=== PATIENT | male | born 1955 | race Caucasian/White ===

== ENCOUNTER → 2025-03-23 15:20 | Outpatient (REF) | payer MEDICARE, OTHER, SELFPAY ==
--- OUTSIDE RECORDS SUMMARY | 2025-03-23 15:23 | XMS_ITS | Encounter Summary ---
Author Organization [facility] Address [address] [place] [address] Phone Care Team Providers Care Piano Maker Name Role Phone Eliecer Sanchez MD Primary Care Provider [phone] Lidia Stone MD Unavailable Edwin Goodwin MD Unavailable [phone] Bon Alicea MD Unavailable [phone] Encounter Details Date Type Department Care Team (Latest Contact Info) Description 09/08/2024 Orders Only [facility] Scanning, Provider Social History Tobacco Use Types Packs/Day Years Used Date Smoking Tobacco: Never Cigarettes Passive Smoke Exposure: Past Smokeless Tobacco: Never AUDIT-C Answer Date Recorded Q1: How often do you have a drink containing alcohol? Never 09/03/2023 Q2: How many drinks containi ng alcohol do you have on a typical day when you are drinking? Patient does not drink Q3: How often do you have si x or more drinks on one occasion? Never 09/03/2023 PHQ-2 Answer Date Recorded PHQ-2 Total Score (If total score is 3 or more points, staff should administer the PHQ-9) 0 10/25/2023 Personal Safety Answer Date Recorded Have you ever been in or are you currently in a harmful physical or emotional relationship or is someone making you feel afraid or unsafe? Denies 10/30/2023 Sex and Gender Information Value Date Recorded Sex Assigned at Not on file Legal Sex Male 9:27 AM CDT Gender Identity Male 03/07/2023 3:15 PM CDT Sexual Orientation Straight 03/07/2023 3: 15 PM CDT documented as of this encounter Plan of Treatment Not on file documented as of this encounter Procedures Procedure Name Priority Date/Time Associated Diagnosis Comments SCAN - PATHOLOGY 09/08/2024 documented in this encounter Results * SCAN - PATHOLOGY (09/08/2024) us Provider Scanning Final Result documented in this encounter Visit Diagnoses Not on filedocumented in this encounter Care Teams Piano Maker Relationship Specialty Start Date End Date Eliecer Sanchez MD [address] [place] [address] PCP - General Family Medicine 05/25/22 Lidia Stone MD [address] [place] [address] Referring Physician Dermatology 08/07/23 Edwin Goodwin MD [address] [place] [address] Surgeon Surgical Oncology 08/09/23 Bon Alicea MD [address] [facility] [address] [place] [address] Medical Oncologist/Order Desk Clerk Medical Oncology 08/09/23 documented as of this encounter
--- OUTSIDE RECORDS SUMMARY | 2025-03-23 15:23 | XMS_ITS | Encounter Summary ---
Author Organization [facility] Address [address] [place] [address] Care Team Providers Care Rn Community Health Name Role Phone Krista Leon NP Primary Care Provider [phone] Oswaldo Wilkinson MD Unavailable [phone] Brian Domínguez OD Unavailable [phone] Lidia Stone MD Unavailable [phone] Gabe Nicole MD Unavailable Eliecer Sanchez MD Primary Care Provider [phone] Encounter Details Date Type Department Care Team (Late st Contact Info) Description 11/17/2021 [email or web address] Message Enc [facility] Family Medicine - [place] [address] [facility] [address] [place] [address] Krista Leon NP [address] [place], [place] [id number] Lab results Social History Tobacco Use Types Packs/Day Years Used Date Smoking Tobacco: Never Smokeless Tobacco: Never Comments:The provider can pr ovide you with more information about quitting. Alcohol Use Standard Drinks/Week Comments Not Currently 0 (1 standard drink = 0.6 oz pur e alcohol) PHQ-2 Answer Date Recorded PHQ-2 Score - If the patient scores above 3, please move on to questions 3-9 0 10/24/2021 Sex and Gender Information Value Date Recorded Sex Assigned at Not on file Legal Sex Male 6:35 PM CDT Gender Identity Not on file Sexual Orientation Straight 11/03/2021 8: 05 AM SUPERVISOR INSPECTION COVID-19 Exposure Response Date Recorded In the last month, have you been in contact with someone who was confirmed or suspected to have Coronavirus / COVID-19? No / Unsure 10/31/2021 8:04 AM SUPER[employer] documented as of this encounter Plan of Treatment Not on file documented as of this encounter Visit Diagnoses Not on filedocumented in this encounter Additional Health Concerns Assessment Noted Time PHQ-9 Depression Total Score: 1 10/24/20 9:45 AM SUPERVISOR INS[employer] documented as of this encounter Care Teams Rn Community Health Relationship Specialty Start Date End Date Krista Leon NP [address] [place] [address] PCP - General NURSE PRACTITIONER 10/23/21 01/14/23 Eliecer Sanchez MD [address] [place] [address] PCP - General FAMILY PRACTICE 01/15/23 Oswaldo Wilkinson MD [address] [facility] [place] [address] Consulting Physician UROLOGY 10/24/21 Brian Domínguez OD [address] [place] [address] Financial Services Agent 10/24/21 Lidia Stone MD [address] [place] [address] DERMATOLOGY 10/24/21 Gabe Nicole MD [address] [facility] [address] [address] Consulting Physician GASTROENTEROLOGY 10/24/21 documented as of this encounter
--- OUTSIDE RECORDS SUMMARY | 2025-03-23 15:23 | XMS_ITS | Encounter Summary ---
Author Organization [facility] Address [address] [place] [address] Phone Care Team Providers Care Hardboard Panel Printer Name Role Phone Eliecer Sanchez MD Primary Care Provider [phone] Lidia Stone MD Unavailable [phone] Edwin Goodwin MD Unavailable [phone] Bon Alicea MD Unavailable [phone] Encounter Details Date Type Department Care Team (Latest Contact Info) Description 01/14/2024 Orders Only [facility] Scanning, Provider Social History Tobacco Use Types Packs/Day Years Used Date Smoking Tobacco: Never Passive Smoke Exposure: Past Smokeless Tobacco: Never [...] Priority Date/Time Associated Diagnosis Comments SCAN - RADIOLOGY/IMAGING 01/14/2024 documented in this encounter Results * SCAN - RADIOLOGY/IMAGING (01/14/2024) Anatomical Region Laterality Modality Other us Provider Scanning Edited Result - Final documented in this encounter Visit Diagnoses Not on filedocumented in this encounter Care Teams Hardboard Panel Printer Relationship Specialty Start Date End Date Eliecer Sanchez MD [address] [place] [address] PCP - General Family Medicine 05/25/22 Lidia Stone MD [address] [place] [address] Referring Physician Dermatology 08/07/23 Edwin Goodwin MD [address] [place] [address] Surgeon Surgical Oncology 08/09/23 [place] [address] [place] [address] [address] [place] [address] Medical Oncologist/Award Clerk Medical Oncology 08/09/23 documented as of this encounter
--- OUTSIDE RECORDS SUMMARY | 2025-03-23 15:23 | XMS_ITS | Encounter Summary ---
Author Organization [facility] Address [address] [place] [address] Phone Care Team Providers Care Project Engineer Name Role Phone Eliecer Sanchez MD Primary Care Provider [phone] Lidia Stone MD Unavailable [phone] Edwin Goodwin MD Unavailable [phone] Bon Alicea MD Unavailable [phone] Encounter Details Date Type Department Care Team (Latest Contact Info) Description 01/22/2024 Orders Only [facility] Scanning, Provider [...] Priority Date/Time Associated Diagnosis Comments SCAN - LABS 01/22/2024 documented in this encounter Results * SCAN - LABS (01/22/2024) Provider Scanning Final Result documented in this encounter Visit Diagnoses Not on filedocumented in this encounter Care Teams Project Engineer Relationship Specialty Start Date End Date Eliecer Sanchez MD [address] [place] [address] PCP - General Family Medicine 05/25/22 Lidia Stone MD [address] [place] [address] Referring Physician Dermatology 08/07/23 Edwin Goodwin MD [address] [place] [address] Surgeon Surgical Oncology 08/09/23 Bon Ailcea MD [address] [facility] [address] [place] [address] Medical Oncologist/Clinical Field Specialist Medical Oncology 08/09/23 documented as of this encounter
--- OUTSIDE RECORDS SUMMARY | 2025-03-23 15:23 | XMS_ITS | Encounter Summary ---
Author Organization [facility] Address [address] [place] [address] Phone Care Team Providers Care Nutrition Manager Name Role Phone Eliecer Sanchez MD Primary Care Provider [phone] Lidia Stone MD Unavailable [phone] Edwin Goodwin MD Unavailable [phone] Bon Alicea MD Unavailable Encounter Details Date Type Department Care Team (Latest Contact Info) Description 12/24/2023 Orders Only [facility] Scanning, Provider [...] Date/Time Associated Diagnosis Comments SCAN - RADIOLOGY/IMAGING 12/24/2023 documented in this encounter Results * SCAN - RADIOLOGY/IMAGING (12/24/2023) Anatomical Region Laterality Modality Other us Provider Scanning Edited Result - Final documented in this encounter Visit Diagnoses Not on filedocumented in this encounter Care Teams Nutrition Manager Relationship Specialty Start Date End Date Eliecer Sanchez MD [address] [place] [address] PCP - General Family Medicine 05/25/22 Lidia Stone MD [address] [place] [address] Referring Physician Dermatology 08/07/23 Edwin Goodwin MD [address] [place] [address] Surgeon Surgical Oncology 08/09/23 [place] [address] [place] [address] [address] [place] [address] Medical Oncologist/Bead Picker Medical Oncology 08/09/23 documented as of this encounter
--- OUTSIDE RECORDS SUMMARY | 2025-03-23 15:23 | XMS_ITS | Clinical Summary ---
Author Organization [facility] [address] [facility] lt Address [address] [place] [address] Care Team Providers Care Strategy Lead Name Role Phone Eliecer Sanchez MD Primary Care Provider [phone] Lidia Stone MD Unavailable [phone] Edwin Goodwin MD Unavailable Bon Alicea MD Unavailable [phone] Allergies Active Allergy Reactions Criticality Noted Date Comments Penicillins Hives,Rash Medium 03/31/2022 Medications cetirizine (ZyrTEC) 10 mg tabletIndications :Allergic Rhinitis Take 1 tablet (10 mg total) by mouth nightly Active finasteride (PROSCAR) 5 mg tabletIndications :benign prostatic hyperplasia with lower urinary tract sx Take 1 tablet (5 mg total) by mouth nightly 2 Active silodosin (RAPAFLO) 8 mg capsuleIndication s:benign prostatic hyperplasia with lower urinary tract sx Take 1 capsule (8 mg total) by mouth nightly 0 Active latanoprost (XALATAN) 0.005 % ophthalmic solutionIndicatio ns:ocular hypertension Administer 1 drop into both eyes nightly 2 Active Lacto.acidophilus -Bif.animalis 32 billion cell capsule Take 1 capsule by mouth daily as needed (gut health) Patient usually only takes this 2-3 times a week Active cod liver oiL oilIndications:oneal pplement Take 1 Dose by mouth every morning Active multivitamin with minerals tabletIndications :Vitamin Deficiency Prevention Take 1 tablet by mouth every morning Active ferrous sulfate 325 mg (65 mg of elemental iron) tabletIndications :Iron Deficiency Anemia Take 1 tablet (325 mg total) by mouth daily with breakfast Active fluticasone propionate (Flonase Allergy Relief) 50 mcg/actuation nasal spray 4 Active levothyroxine (SYNTHROID) 75 mcg tablet Take 1 tablet (75 mcg total) by mouth warehouse pricing and inventory clerk before breakfast 30 tablet 3 5 Active Sodium Fluoride 5000 Plus 1.1 % cream BRUSH TWICE DAILY 5 Active Active Problems Problem Noted Date Diagnosed Date Medicare annual wellness visit, subsequent 10/29 Assessment & Plan (10/29/2024 11:32 AM SPA EXPERIENCE COORDINATOR): In regard to health maintenance, Colonoscopy- UTD Influenza vaccine- UTD Pneumococcal vaccine- UTD Shingrix vaccine- UTD ASCVD risk: 16.6% Eat a healthy diet: focus on lean meats and proteins, more fruits, vegetables and whole grains and low in sugars and fats. Limit red meat and avoid processed meat. Maintain a healthy weight; avoid being overweight. Aim for a normal body mass index (BMI) of 18.5-24.9. Help learning to eat healthier, we can set up appointment with annual campaign manager/floral artist. Have an active lifestyle, strive for 30 minutes of moderate exercise 5 times a week and strength or resistance training at least twice a week. Use broad-spectrum (UVA+UVB) sunscreen with SPF 30 or greater, is water resistant, limit time spent in the sun (10 am-4pm), wear hat, wear UV protective clothing, wear sunglasses. Never use a tanning bed. Skin that was irradiated may be more sensitive over your lifetime. Limit alcohol intake, 1 drink per day for a woman and 2 drinks per day for a man. BMI 26.0-26.9,adult 10/29/2024 Assessment & Plan (10/29/2024 11:32 AM SPA EXPERIENCE COORDINATOR): Weight appropriate for patient. Elevated liver enzymes 10/30/2023 Assessment & Plan (10/30/2023 12:06 AM SPA EXPERIENCE COORDINATOR): - Unclear etiology, possibly related to brief hypotensive episode in the ED - Check Hepatitis panel and HIV with AM labs Syncope 10/29/2023 Assessment & Plan (10/30/2023 12:00 AM SPA EXPERIENCE COORDINATOR): - Patient presenting following an episode of syncope prior to arrival while sitting at dinner - Evaluation with unremarkable BMP/CBC, hs-trop 4 x 2, EKG with NSR with RAD with RVH - no prior EKG for comparison without ST-T changes noted - CT-PE without PE. - Presume this as a vasovagal episode (unclear if pembro would have any contribution), given occurred at sitting not consistent with orthostasis. Given he was sitting, this increases concern for arrhythmic etiology - no notable murmurs noted on exam. No concern for seizure at this time based on history. - Telemetry overnight, fall precautions Malignant melanoma of right upper extremity including shoulder 08/27/2023 Assessment & Plan (04/29/2024 4:35 PM CDT): Stable, well controlled; most recent PET scan demonstrated no evidence of local or distant disease Patient gets quarterly skin checks Keytruda every 6 weeks Assessment & Plan (10/30/2023 12:01 AM SPA EXPERIENCE COORDINATOR): - Follows with Dr. Alicea s/p RUE excision. Today C1D1 of pembrolizumab initiated. - Outpatient follow-up Assessment & Plan (10/25/2023 9:18 AM SPA EXPERIENCE COORDINATOR): Doing well; starts immunotherapy next week Melanoma of right upper arm 08/19/2023 Right hand pain 08/07/2023 Digital mucinous cyst of finger 01/07/2023 Overview (05/03/2023): Located on right ring finger Assessment & Plan (05/03/2023 9:49 AM CDT): No changes in size, no impact to function, located on right ring finger Changes size shape for impacts functionality; refer to Hand surgery Assessment & Plan (01/07/2023 10:13 AM SPA EXPERIENCE COORDINATOR): Located in right hand, imaging was indeterminate; at this time patient would prefer to wait about getting biopsy Will continue to monitor for changes in mass Onychomycosis 01/07/2023 Assessment & Plan (05/03/2023 9:33 AM CDT): Continues to have improvement in toenails. Completed antifungal treatment Assessment & Plan (01/07/2023 10:14 AM SPA EXPERIENCE COORDINATOR): Stable, improving; continues to have thickening on about half of the toenail Continue Lamisil 25 mg daily COVID-19 03/31/2022 Assessment & Plan (03/31/2022 11:18 AM CDT): Labs completed 12/02/21 at [facility]. Able to see results in his mychart. Normal LFTs. GFR=60. Would like to have paxlovid. Will send in renal dosing. The rapid COVID test performed today in clinic was positive. The following are recommendations for treating the symptoms related to COVID19. What is the difference between Influenza (Flu) and COVID-19? Influenza (Flu) and COVID-19 are both contagious respiratory illnesses, but they are caused by different viruses. COVID-19 is caused by infection with a new coronavirus (called SARS-CoV-2) and flu is caused by infection with influenza viruses. There are some hall differences between flu and COVID-19. COVID-19 seems to spread more easily than flu and causes more serious illnesses in some people. It can also take longer before people show symptoms and people can be contagious for longer. The best way to prevent infection is to avoid being exposed to the virus. Because some of the symptoms of flu and COVID-19 are similar, it may be hard to tell the difference between them based on symptoms alone, and testing may be needed to help confirm a diagnosis. While more is learned every day, there is still a lot that is unknown about COVID-19 and the virus that causes it. The [facility] Department will be reaching out to all patients who have a positive test for further discussion and monitoring. Continue to self isolate until at least 10 days have passed since symptom onset, your symptoms have improved, and you have been fever free without the use of fever reducing medications for at least 24 hours. You may use acetaminophen and/or ibuprofen to control pain and fever. If you have chronic liver disease, have ever had a stomach ulcer or gastrointestinal bleeding talk with your healthcare provider before using these medicines. Aspirin should never be given to anyone under 18 years of age who is ill with a viral infection or fever. It may cause severe liver or brain damage. Your appetite may be poor, so a light diet is ok. Stay well hydrated by drinking 6 to 8 glasses of fluids per day (water, soft drinks, juices, tea, or soup). Extra fluids will help loosen secretions in the nose and lungs. Cqgj-uvn-rsxyeyc cold medicines will not shorten the length of time you r e sick, but they may be helpful for relieving the following symptoms: headache, cough, sore throat, and nasal and sinus congestion. If you take prescription medicines, ask your healthcare provider or pharmacist which vyof-eaa-jndxhxa medicines are safe to use. (Note: DO NOT use decongestants if you have high blood pressure.) Steps to help prevent the spread of COVID-19 if you are sick If you are sick with COVID-19 or think you might have COVID-19, follow the steps below to care for yourself and to help protect other people in your home and community. Stay home except to get medical care Most people with COVID-19 have mild illness and are able to recover at home without medical care. Do not leave your home, except to get medical care. Do not visit public areas. Take care of yourself. Get rest and stay hydrated. Take qzsf-gxg-wjlfval medicines to help you feel better. Stay in touch with your doctor. Call before you get medical care. Be sure to get care if you have trouble breathing, or have any other emergency warning signs, or if you think it is an emergency. Avoid using public transportation, ride-sharing, or taxis. Monitor your symptoms Symptoms of COVID-19 include fever, cough, shortness of breath or difficulty breathing, fatigue, muscle or body aches, headache, new loss of taste or smell, sore throat, congestion, runny nose, nausea, vomiting, or diarrhea. When to Seek Medical Attention If you develop emergency warning signs for COVID-19 get medical attention immediately. Emergency warning signs include*: Trouble breathing Persistent pain or pressure in the chest New confusion or inability to arouse Bluish lips or face *This list is not all inclusive. Please consult your medical provider for any other symptoms that are severe or concerning. Call 911 if you have a medical emergency: If you have a medical emergency and need to call 911, notify the cat wagon operator that you have or think you might have, COVID-19. If possible, put on a facemask before medical help arrives. Separate yourself from other people in your home, this is known as home isolation As much as possible, you should stay away from other people and pets in your home. You should stay in a specific s ick room if possible. Use a separate bathroom, if available. If you need to be around other people or animals in or outside of the home, wear a mask For more information on sharing close living quarters with someone who is sick visit https://www.cdc.gov/coronavirus/2019-ncov/bfklz-nzyo-awxnbc/rgxejq-af-irnrb-quar ters. html For more information on COVID-19 and pets visit https://www.cdc.gov/coronavirus/2019-ncov/faq.html Call ahead before visiting your doctor Many medical visits for routine care are being postponed or done by phone or telemedicine. If you have a medical appointment that cannot be postponed, call your doctor s office, and tell them you have or may have COVID-19. This will help the office protect themselves and other patients. If You Test Positive for COVID-19 (Isolate) Everyone, regardless of vaccination status. Stay home for 5 days. If you have no symptoms or your symptoms are resolving after 5 days, you can leave your house. Continue to wear a mask around others for 5 additional days. If you have a fever, continue to stay home until your fever resolves. Weight loss 04/17/2021 Overview (05/28/2022): Added automatically from request for surgery [id number] Gastroesophageal reflux dise ase with esophagitis without hemorrhage 02/28/2021 Assessment & Plan (10/29/2024 11:30 AM SPA EXPERIENCE COORDINATOR): Well controlled and stable. No longer on Nexium and instead is using OTC digestive enzyme with great relief. Will continue to monitor. Assessment & Plan (04/29/2024 4:35 PM CDT): Stable, well controlled; continues to have some symptoms, unable to lower dose Continue Nexium 20 mg daily Assessment & Plan (10/25/2023 9:08 AM SPA EXPERIENCE COORDINATOR): Stable, well controlled Continue Nexium 20 mg daily Assessment & Plan (05/03/2023 9:34 AM CDT): Well controlled; no major issues with medications Can eat some foods that previously causes issued Continue Nexium 20 mg daily Assessment & Plan (01/07/2023 10:12 AM SPA EXPERIENCE COORDINATOR): Stable, well controlled; patient has careful diet Continue Nexium 20 mg daily Hiatal hernia 02/28/2021 Assessment & Plan (05/29/2022 1:59 PM CDT): Stable, well controlled; patient has been doing well, takes nfji-vbo-sczpogi Nexium daily; making dietary changes to reduce sitting and spicy food intake Benign prostatic hyperplasia without lower urinary tract symptoms 09/20/2020 Assessment & Plan (10/29/2024 11:24 AM SPA EXPERIENCE COORDINATOR): Stable and well controlled. Follows with urology. Continues on Finasteride and Silodosin. Will continue to monitor. Assessment & Plan (04/29/2024 4:34 PM CDT): Stable, generally well controlled; follows with Urology for management; continues have some symptoms; may benefit from interventional treatments Continue finasteride 5 mg daily, silodosin 8 mg nightly Assessment & Plan (10/30/2023 12:00 AM SPA EXPERIENCE COORDINATOR): - Cont home meds Assessment & Plan (10/25/2023 9:05 AM SPA EXPERIENCE COORDINATOR): Follows with urology; currently getting good results Contineu Silodosin 8 mg daily and finasteride 5 mg daily Assessment & Plan (05/03/2023 9:49 AM CDT): Continues to follow with urology; urinating well Per patient has rising PSA; may be due for biopsy -on current medications, with good relief Continue silodosin 8 mg daily, finasteride 5 mg daily Assessment & Plan (01/07/2023 10:13 AM SPA EXPERIENCE COORDINATOR): Stable, well controlled; follows with Urology for management Continue finasteride 5 mg daily, Savella dosing 8 mg daily Assessment & Plan (05/29/2022 1:59 PM CDT): Stable, well controlled; patient reports few symptoms with current medications Continue finasteride 5 mg daily, silodosin 8 mg daily Mixed hyperlipidemia 09/20/2020 Assessment & Plan (10/29/2024 11:31 AM SPA EXPERIENCE COORDINATOR): Lipid panel stable and well controlled. Continues to control with diet and lifestyle. Continue to encourage low-fat high-fiber diet. Assessment & Plan (04/29/2024 4:35 PM CDT): Stable, well controlled; lipids and near optimal ranges; no current medications Continue to encourage low-fat high-fiber diet Assessment & Plan (05/03/2023 9:48 AM CDT): Well controlled; lipids at goal ASCVD risk score is 13.3% Continue low-fat high-fiber diet; continue monitor if patient would benefit from statin therapy Assessment & Plan (01/07/2023 10:12 AM SPA EXPERIENCE COORDINATOR): Stable, well controlled; patient using supplements for management of cholesterol ASCVD risk score is 14% Encourage low-fat high-fiber diet If no improvement, will discuss adding statin therapy Assessment & Plan (05/29/2022 1:58 PM CDT): Stable, well controlled; patient has been working on lifestyle changes, no current medications Vitamin D deficiency 09/20/2020 Resolved Problems Problem Noted Date Diagnosed Date Resolved Date Syncope with normal neurologic examination 10/29/2023 10/30/2023 Assessment & Plan (10/30/2023 12:01 AM SPA EXPERIENCE COORDINATOR): - Encounters Date Type Department Care Team Description 03/03/2025 1:30 PM CDT Office Visit [facility] Cardiology [address], [address] [place] [address] Rater, OCTAVIO Doshi Pure hypercholesterolemia (Primary Dx); Vasovagal syncope 01/29/2025 Orders Only [facility] Scanning, Provider 01/25/2025 Orders Only [facility] Oncology [address] [place] [address] Bon Alicea MD from Last 3 Months Immunizations Immunization Administration Dates Next Due H1N1 Inj 09/27/2009 Hep B Vaccine 03/21/1989,10/18/1988,09/20/1988 Influenza, Quadrivalent, Camelia l Culture-based MDCK, Preservative Free, Antibiotic Free, Intramuscular 10/08/2023,08/24/2021 Influenza, Quadrivalent, Hig h Dose, Preservative Free, Intrr 09/04/2020 Influenza, Quadrivalent, Spl it, Preservative Free, Intramuscular 09/05/2022,08/19/2019,09/26/2017,08/23,08/23/2015 Influenza, Split 09/18/2018 Influenza, Trivalent, Cell Culture-based MDCK, Preservative Free, Antibiotic Free, Intramuscular 10/02/2024 Influenza, Trivalent, IM (MDV) 09/02/2014 Influenza, Unspecified 09/17/2023(Deferr ed: Patient Refused),08/11/2023,09/25/2022, 022 Pneumococcal Conjugate PCV 13 08/19/2019 Pneumococcal Polysaccharide PPV23 09/20/2020 RSV Vaccine, Pref, Recombina nt, Subunit, Adjuvanted, PF, IM (Arexvy) 08/08/2023 Td, adsorbed 06/09/1993 Tdap 10/10/2020 ZOSTER LIVE 07/12/2016 ZOSTER Recombinant 10/24/2021,07/14/2021 Surgical History Surgery Date Site/Laterality Comments TONSILLECTOMY 11/11/1958 - 11/10/1959 COLONOSCOPY multiple ESOPHAGOGASTRODUODENOSCOPY 01/09/2021 - 02/08/2021 SURGICAL EXCISION 09/24/2023 Right R upper arm melanoma VASECTOMY 1988 Medical History Medical History Date Comments Hiatal hernia Enlarged prostate Allergic Melanoma of right upper arm (HCC) 08/19/2023 GERD (gastroesophageal reflux disease) January Benign prostatic hyperplasia Many years Family History Medical History Relation Name Comments Melanoma Brother 1 Cancer Brother 2 Robbin Lopez Miscarriages / Stillbirths Daughter Michelle Cerrato Hearing loss Father Sebastián Stanko Heart disease Father Sebastián Stanko Hypertension Father Sebastián Stanko Memory loss Maternal Grandmother Brandy DeFord Vision loss Maternal Grandmother Brandy DeFord Dementia Mother Nancy Stanko Hypertension Mother Nancy Stanko Memory loss Mother Nancy Stanko Stroke Mother Nancyselina Dentonko Breast cancer Sister 1 Cancer Sister 2 Lisa Lopez Cerebral palsy Sister 2 Lisa Lopez Relation Name Status Comments Brother 1 Brother 2 Robbin Lopez Daughter Michelle Cerrato Father Sebastián Lopez Maternal Grandmother Brandy DeFseble Mother Nancy Lopez Sister 1 Sister 2 Lisa Lopez Social History Tobacco Use Types Packs/Day Years Used Date Smoking Tobacco: Never Passive Smoke Exposure: Past Smokeless Tobacco: Never Tobacco Cessation:Counseling Given: Not Answered AUDIT-C Answer Date Recorded Q1: How often [...] points, staff should administer the PHQ-9) 0 10/29/2024 Personal Safety Answer Date Recorded Have you [...] Orientation Straight 03/07/2023 3: 15 PM CDT Obstetrics History Last Filed Vital Signs Vital Sign Reading Time Taken Comments Blood Pressure 113/72 03/03/2025 1:29 PM CDT Pulse 81 03/03/2025 1:29 PM CDT Temperature 36.4 C (97.6 F) 03/03/2025 1:29 PM CDT Respiratory Rate 16 03/03/2025 1:29 PM CDT Oxygen Saturation 98% 03/03/2025 1:2 9 PM CDT Inhaled Oxygen Concentration - - Weight 78 kg (172 lb) 03/03/2025 1:29 PM CDT Height 174.2 cm (5' 8.58 ) 03/03/2025 1 :29 PM CDT no shoes, no change in ht Body Mass Index 25.71 03/03/2025 1:29 PM CDT Plan of Treatment Health Maintenance Due Date Last Done Comments Covid-19 Vaccine (2023-2 5 season) 2024 08/29/2023, 07/28/2022, 03/26/2022, Additional history exists Depression Screening 10/29/2025 10/29/2024, 10/25/2023, 09/17/2023, Additional history exists Fall Risk Assessment 10/29/2025 10/29/2024, 04/29/2024, 10/31/2023, Additional history exists Well Visit 65+ 10/29/2025 10/29/2024, 10/11, 10/25/2023 DTaP/Tdap/Td Vaccine (2 - Td or Tdap) 10/10/2030 10/10/2020, 06/09/1993 Colon Cancer Screening-Colonoscopy 04/28/2031 04/28/2021 Hepatitis B Screening Completed 03/21/1989 , 10/18/1988, 09/20/1988 Pneumococcal vaccine 65+ Completed 09/20/2020, 07/2019 Zoster Vaccine Completed 10/24/2021, 01/2021, 07/12/2016 Prostate Cancer Screening-PSA Discontinued 10/29/2022 Hepatitis C Screening Completed 10/30/2023, 023 Influenza Vaccine Completed 10/02/2024, , 08/11/2023, Additional history exists Procedures Procedure Name Priority Date/Time Associated Diagnosis Comments SCAN - PATHOLOGY 01/29/2025 9:18 AM CDT HEPATITIS PANEL, ACUTE Routine 10/30/2023 1:45 AM SPA EXPERIENCE COORDINATOR PSA SCREEN Routine 10/29/2022 11:15 AM SPA EXPERIENCE COORDINATOR Screening PSA (prostate specific antigen) HM COLONOSCOPY Routine 04/28/2021 from Last 3 Months or Most Recently Relevant to Health Maintenance Results * SCAN - PATHOLOGY (01/29/2025 9:18 AM CDT) us Provider Scanning Final Result * Hepatitis panel, acute Blood (10/30/2023 1:45 AM SPA EXPERIENCE COORDINATOR) Hep A IgM Nonreactive Nonreactive [facility] Hep B core IgM Nonreactive Nonreactive [facility] Hep C Ab Nonreactive Nonreactive [facility] Comment:Antibodies to HCV no t detected. Does NOT exclude the possibility of recent exposure to HCV. Current interpretive data was last revised on 22 HepBsAg Nonreactive Nonreactive [facility] Blood 10/30/2023 1:45 AM SPA EXPERIENCE COORDINATOR 10/30/2023 1:54 AM SPA EXPERIENCE COORDINATOR Yoni Barnhart MD LAB MICROBIOLOGY - [facility] L ORDERABLES Final Result [facility] Department [place] [address] * PSA screen (10/29/2022 11:15 AM SPA EXPERIENCE COORDINATOR) PSA-Total 2.77 <=5.40 ng/mL [facility] Comment: Interpretive Data AGE SEX REFERENCE INTERVAL 0 minutes-150 years Female None 0 minutes-49 years Male None 50-59 years Male 0-3.90 60-69 years Male 0-5.40 70-79 years Male 0-6.20 80-150 years Male 0-6.20 The Micah PSA Total assay procedure was used. Results from different manufacturers or methods may not be comparable. Serial testing should be performed using the same method. Current interpretive data last revised 22. Blood 10/29/2022 11:1 5 AM SPA EXPERIENCE COORDINATOR 10/29/2022 2:35 PM SPA EXPERIENCE COORDINATOR Eliecer Sanchez MD LAB BLOOD [place] [id number] [facility] Department [place] [address] * HM COLONOSCOPY (04/28/2021) us Historical Provider HEALTH MAINTENANCE Final Result from Last 3 Months or Most Recently Relevant to Health Maintenance Insurance MEDICARE [facility] INS [place] MEDICARE [employer] [place] MED[employer]ARE [employer] [place] Advance Directives For more information, please contact: [phone] Documents on File Type Date Recorded Patient Psychiatric Social Worker Supervisor Expl anation ADVANCE DIRECTIVE 10/25/2023 9:14 AM Hoa morales Will ADVANCE DIRECTIVE 10/25/2023 9:14 AM Bernardo r of Manager Flight-Medical * Full Code (Latest Code Status on File) Date Activated Date Inactivated Comments 10/29/2023 11:54 PM 10/31/2023 7:49 PM Care Teams Strategy Lead Relationship Specialty Start Date End Date Eliecer Sanchez MD [address] [place] [id number] PCP - General Family Medicine 05/25/22 Lidia Stone MD [address] [place] [address] Referring Physician Dermatology 08/07/23 Edwin Goodwin MD [address] [place] [address] Surgeon Surgical Oncology 08/09/23 [place] [address] [place] [address] [place] [id number] Medical Oncologist/Tmr Teacher Medical Oncology 08/09/23
--- OUTSIDE RECORDS SUMMARY | 2025-03-23 15:23 | XMS_ITS | Encounter Summary ---
Author Organization [facility] Address [address] [place] [address] Phone Care Team Providers Care Medical Technologist Blood Bank Name Role Phone Eliecer Sanchez MD Primary Care Provider [phone] Lidia Stone MD Unavailable [phone] Edwin Goodwin MD Unavailable [phone] Bon Alicea MD Unavailable Encounter Details Date Type Department Care Team (Latest Contact Info) Description 06/16/2024 Orders Only [facility] Scanning, Provider [...] Date/Time Associated Diagnosis Comments SCAN - PATHOLOGY 06/16/2024 documented in this encounter Results * SCAN - PATHOLOGY (06/16/2024) us Provider Scanning Final Result documented in this encounter Visit Diagnoses Not on filedocumented in this encounter Care Teams Medical Technologist Blood Bank Relationship Specialty Start Date End Date Eliecer Sanchez MD [address] [place] [address] PCP - General Family Medicine 05/25/22 Lidia Stone MD [address] [place] [address] Referring Physician Dermatology 08/07/23 Edwin Goodwin MD [address] [place] [address] Surgeon Surgical Oncology 08/09/23 Bon Alicea MD [address] [facility] [address] [place] [address] Medical Oncologist/Youth Services Librarian Medical Oncology 08/09/23 documented as of this encounter
--- OUTSIDE RECORDS SUMMARY | 2025-03-23 15:23 | XMS_ITS ---
Author Organization [facility] [place] [facility] lto Address [address] [place] [address] Care Team Providers Care Lymphedema Therapist Name Role Phone Eliecer Sanchez MD Primary Care Provider [phone] Lidia Stone MD Unavailable [phone] Edwin Goodwin MD Unavailable [phone] Bon Alicea MD Unavailable [phone] Active Problems Problem Noted Date Diagnosed Date Medicare annual wellness visit, subsequent 10/29 Assessment & Plan (10/29/2024 11:32 AM NET COORDINATOR): In regard to health maintenance, Colonoscopy- [...] healthier, we can set up appointment with sliver chopper/senior program planner. Have an active lifestyle, strive for 30 [...] 10/29/2024 Assessment & Plan (10/29/2024 11:32 AM NET COORDINATOR): Weight appropriate for patient. Elevated liver enzymes 10/30/2023 Assessment & Plan (10/30/2023 12:06 AM NET COORDINATOR): - Unclear etiology, possibly related to brief hypotensive episode in the ED - Check Hepatitis panel and HIV with AM labs Syncope 10/29/2023 Assessment & Plan (10/30/2023 12:00 AM NET COORDINATOR): - Patient presenting following an episode [...] weeks Assessment & Plan (10/30/2023 12:01 AM NET COORDINATOR): - Follows with Dr. Alicea s/p LEBRON noonan. Today C1D1 of pembrolizumab initiated. - Outpatient follow-up Assessment & Plan (10/25/2023 9:18 AM NET COORDINATOR): Doing well; starts immunotherapy next week [...] surgery Assessment & Plan (01/07/2023 10:13 AM NET COORDINATOR): Located in right hand, imaging was indeterminate; at this time patient would prefer to wait about getting biopsy Will continue to monitor for changes in mass Onychomycosis 01/07/2023 Assessment & Plan (05/03/2023 9:33 AM CDT): Continues to have improvement in toenails. Completed antifungal treatment Assessment & Plan (01/07/2023 10:14 AM NET COORDINATOR): Stable, improving; continues to have thickening on about half of the toenail Continue Lamisil 25 mg daily COVID-19 03/31/2022 Assessment & Plan (03/31/2022 11:18 AM CDT): Labs completed 12/02/21 at [facility]. Able to see results in his mychart. [...] and the virus that causes it. The [facility] Department will be reaching out to all [...] loosen secretions in the nose and lungs. Aaag-xvz-waxwcgt cold medicines will not shorten the length of time you r e sick, but they may be helpful for relieving the following symptoms: headache, cough, sore throat, and nasal and sinus congestion. If you take prescription medicines, ask your healthcare provider or pharmacist which figr-emp-zdbgqfi medicines are safe to use. (Note: DO [...] yourself. Get rest and stay hydrated. Take xqkk-duu-tgoxbfc medicines to help you feel better. Stay [...] and need to call 911, notify the finishing range operator that you have or think you [...] quarters with someone who is sick visit https://www.cdc.gov/coronavirus/2019-ncov/rducd-nhtp-qkbyjq/udjqnc-hj-lcvth-quar ters. html For more information on COVID-19 [...] (05/28/2022): Added automatically from request for surgery [id number] Gastroesophageal reflux dise ase with esophagitis without hemorrhage 02/28/2021 Assessment & Plan (10/29/2024 11:30 AM NET COORDINATOR): Well controlled and stable. No longer on Nexium and instead is using OTC digestive enzyme with great relief. Will continue to monitor. Assessment & Plan (04/29/2024 4:35 PM CDT): Stable, well controlled; continues to have some symptoms, unable to lower dose Continue Nexium 20 mg daily Assessment & Plan (10/25/2023 9:08 AM NET COORDINATOR): Stable, well controlled Continue Nexium 20 mg daily Assessment & Plan (05/03/2023 9:34 AM CDT): Well controlled; no major issues with medications Can eat some foods that previously causes issued Continue Nexium 20 mg daily Assessment & Plan (01/07/2023 10:12 AM NET COORDINATOR): Stable, well controlled; patient has careful diet Continue Nexium 20 mg daily Hiatal hernia 02/28/2021 Assessment & Plan (05/29/2022 1:59 PM CDT): Stable, well controlled; patient has been doing well, takes fnnh-pdy-qiyvwet Nexium daily; making dietary changes to reduce sitting and spicy food intake Benign prostatic hyperplasia without lower urinary tract symptoms 09/20/2020 Assessment & Plan (10/29/2024 11:24 AM NET COORDINATOR): Stable and well controlled. Follows with urology. Continues on Finasteride and Silodosin. Will continue to monitor. Assessment & Plan (04/29/2024 4:34 PM CDT): Stable, generally well controlled; follows with Urology for management; continues have some symptoms; may benefit from interventional treatments Continue finasteride 5 mg daily, silodosin 8 mg nightly Assessment & Plan (10/30/2023 12:00 AM NET COORDINATOR): - Cont home meds Assessment & Plan (10/25/2023 9:05 AM NET COORDINATOR): Follows with urology; currently getting good results Contineu Silodosin 8 mg daily and finasteride 5 mg daily Assessment & Plan (05/03/2023 9:49 AM CDT): Continues to follow with urology; urinating well Per patient has rising PSA; may be due for biopsy -on current medications, with good relief Continue silodosin 8 mg daily, finasteride 5 mg daily Assessment & Plan (01/07/2023 10:13 AM NET COORDINATOR): Stable, well controlled; follows with Urology for management Continue finasteride 5 mg daily, Savella dosing 8 mg daily Assessment & Plan (05/29/2022 1:59 PM CDT): Stable, well controlled; patient reports few symptoms with current medications Continue finasteride 5 mg daily, silodosin 8 mg daily Mixed hyperlipidemia 09/20/2020 Assessment & Plan (10/29/2024 11:31 AM NET COORDINATOR): Lipid panel stable and well controlled. [...] therapy Assessment & Plan (01/07/2023 10:12 AM NET COORDINATOR): Stable, well controlled; patient using supplements for management of cholesterol ASCVD risk score is 14% Encourage low-fat high-fiber diet If no improvement, will discuss adding statin therapy Assessment & Plan (05/29/2022 1:58 PM CDT): Stable, well controlled; patient has been working on lifestyle changes, no current medications Vitamin D deficiency 09/20/2020 Current Treatment and Therapy Plans No current plan information found. Past Treatment and Therapy Plans Oncology Chemotherapy Treatment Plan Name Start Date Discontinue Date Treatment Medications Discontinue Reason Plan Provider Cycles Pembrolizumab 42 Day Cycles 4 10/20/2024 pembrolizumab (KEYTRUDA)pembr olizumab (KEYTRUDA) IVPB in 100 mL Provider Discretion Bon Alicea MD 5 of 12 cycles started Pembrolizumab 21 Day Cycles 10/29/20 23 03/24/2024 pembrolizumab (KEYTRUDA) Change in Level of Care Bon Alicea MD 7 of 7 cycles started Lifetime Dose Tracking * Chemical Lifetime Dose Automatic Entry Manual Entr y DLP 970 mGycm 970 mGycm 0 mGycm Resolved Problems Problem Noted Date Diagnosed Date Resolved Date Syncope with normal neurologic examination 10/29/2023 10/30/2023 Assessment & Plan (10/30/2023 12:01 AM NET COORDINATOR): -
--- OUTSIDE RECORDS SUMMARY | 2025-03-23 15:23 | XMS_ITS | Encounter Summary ---
Author Organization [facility] Address [address] [place] [address] Care Team Providers Care Hand Etcher Helper Name Role Phone Edwin Bull MD Primary Care Provider UnavailKrista Angela NP Primary Care Provider [phone] Oswaldo Wilkinson MD Unavailable [phone] Brian Domínguez OD Unavailable [phone] Lidia Stone MD Unavailable [phone] Gabe Nicole MD Unavailable Eliecer Sanchez MD Primary Care Provider Encounter Details Date Type Department Care Team (Late st Contact Info) Description 04/17/2021 Prep for Procedure [facility] [address] [place], [place] [id number] Gabe Nicole MD [address] [address] Social History Tobacco Use Types Packs/Day Years Used Date Smoking Tobacco: Never Smokeless Tobacco: Never Alcohol Use Standard Drinks/Week Comments Not Currently 0 (1 standard drink = 0.6 oz pur e alcohol) PHQ-2 Answer Date Recorded PHQ-2 Score - If the patient scores above 3, please move on to questions 3-9 0 09/20/2020 Sex and Gender Information Value Date Recorded Sex Assigned at Not on file Legal Sex Male 6:35 PM CDT Gender Identity Not on file Sexual Orientation Straight 11/03/2021 8: 05 AM DIVING FISHER COVID-19 Exposure Response Date Recorded In the last month, have you been in contact with someone who was confirmed or suspected to have Coronavirus / COVID-19? No / Unsure 04/19/2021 12:30 PM CDT documented as of this encounter Plan of Treatment Not on file documented as of this encounter Results * PRE-SURGICAL/PRE-PROCEDURE CORONAVIRUS (COVID 19) (04/25/2021 2:30 PM CDT) SPECIMEN SOURCE NASOPHARYNGEAL SWAB 04/25/2021 2:02 PM CDT [facility] CORONAVIRUS SARS COV 2 PCR (RESP) NEGATIVE NEGATIVE 04/27/2021 12:[address] [facility] Comment: THE SARS-CoV-2 TEST HAS BEEN AUTHORIZED BY THE FDA UNDER AN EUA FOR USE BY AUTHORIZED LABORATORIES. PERFORMED BY NUCLEIC ACID AMPLIFICATION PCR FIRST TEST UNKNOWN 04/25/2021 2:02 PM CDT [facility] EMPLOYED IN HEALTHCARE NO 04/25/2021 2:02 PM CDT [facility] SYMPTOMATIC DEFINED BY CDC UNKNOWN 04/25/2021 2:02 PM CDT [facility] HOSPITALIZATION STATUS NO 04/25/2021 2:02 PM CDT [facility] PATIENT IN ICU NO 04/25/2021 2:02 PM CDT [facility] RESIDENT OF [facility] CARE NO 04/25/2021 2:02 PM CDT [facility] NASOPHARYNGEAL SWAB / Unknown 04/25/2021 2:30 PM CDT Gabe Nicole MD MICROBIOLOGY - GENERAL ORDERABLE S Final Result [facility] [address] [place] [address], [place] [phone] [facility] [address] [place] [address], [place] [phone] documented in this encounter Visit Diagnoses Diagnosis Preop testing- Primary Preoperative examination, unspecified documented in this encounter Additional Health Concerns Infection Onset Date Last Indicated Resolved Time COVID-19 Rule Out 04/25/2021 04/25/2021 04/27/2021 12:41 PM CDT Assessment Noted Time PHQ-9 Depression Total Score: 0 09/20/20 9:21 AM DIVING FISHER documented as of this encounter Care Teams Hand Etcher Helper Relationship Specialty Start Date End Date Edwin Bull MD PCP - General FAMILY MEDICINE SPORTS MEDICINE 09/08/20 10/22/21 Krista Leon NP [address] [place] [address] PCP - General NURSE PRACTITIONER 10/23/21 01/14/23 Eliecer Sanchez MD [address] [place] [address] PCP - General FAMILY PRACTICE 01/15/23 Oswaldo Wilkinson MD [address] [place] [address] Consulting Physician UROLOGY 10/24/21 Brian Domínguez OD [address] [place] [address] Outside Upholsterer 10/24/21 Lidia Stone MD [address] [place] [address] DERMATOLOGY 10/24/21 Gabe Nicole MD [address] [address] Consulting Physician GASTROENTEROLOGY 10/24/21 documented as of this encounter
--- OUTSIDE RECORDS SUMMARY | 2025-03-23 15:23 | XMS_ITS | Encounter Summary ---
Author Organization [facility] Address [address] [place] [address] Phone Care Team Providers Care Gantry Rigger Name Role Phone Eliecer Sanchez MD Primary Care Provider [phone] Lidia Stone MD Unavailable [phone] Edwin Goodwin MD Unavailable Bon Alicea MD Unavailable [phone] Encounter Details Date Type Department Care Team (Latest Contact Info) Description 11/19/2023 Orders Only [facility] Scanning, Provider [...] Date/Time Associated Diagnosis Comments SCAN - LABS 11/19/2023 documented in this encounter Results * SCAN - LABS (11/19/2023) Provider Scanning Final Result documented in this encounter Visit Diagnoses Not on filedocumented in this encounter Care Teams Gantry Rigger Relationship Specialty Start Date End Date Eliecer Sanchez MD [address] [place] [address] PCP - General Family Medicine 05/25/22 Lidia Stone MD [address] [place] [address] Referring Physician Dermatology 08/07/23 Edwin Goodwin MD [address] [place] [address] Surgeon Surgical Oncology 08/09/23 Bon Alicea MD [address] [facility] [address] [place] [address] Medical Oncologist/Senior Analytical Chemist Medical Oncology 08/09/23 documented as of this encounter
--- OUTSIDE RECORDS SUMMARY | 2025-03-23 15:23 | XMS_ITS | Clinical Summary ---
Author Organization [facility] Address [address] [place] [address] Care Team Providers Care Cooler Worker Name Role Phone Oswaldo Wilkinson MD Unavailable [phone] Brian Domínguez OD Unavailable [phone] Lidia Stone MD Unavailable [phone] Gabe Nicole MD Unavailable Eliecer Sanchez MD Primary Care Provider [phone] Allergies Active Allergy Reactions Criticality Noted Date Comments Penicillins Unknown 12/30/2012 Medications silodosin 8 MG Cap capsule Take 8 mg by mouth daily. 0 Active probiotic capsule Take 1 capsule by mouth daily. Active Cod Liver Oil 1000 MG Cap Take 1 capsule by mouth daily. Active Multiple Vitamins-Minera ls (MULTIVITAL OR) Take 1 tablet by mouth daily. Active latanoprost 0.005 % ophthalmic solution Place 1 drop into both eyes nightly at bedtime. 1 Active imiquimod 5 % cream Apply topically nightly at bedtime. Apply to affected area as directed by 1 Active cetirizine 10 MG tablet Take 10 mg by mouth daily. Active finasteride 5 MG tablet 1 Active fluconazole (DIFLUCAN) 150 MG tabletIndicatio ns:Ringworm of body Take one tablet once per week for three weeks. 3 tablet Active Active Problems Problem Noted Date Diagnosed Date Epigastric pain 04/17/2021 Overview (04/17/2021): Added automatically from request for surgery [id number] Weight loss 04/17/2021 Overview (04/17/2021): Added automatically from request for surgery [id number] Change in bowel function 04/17/2021 Overview (04/26/2021): Added automatically from request for surgery [id number] Gastroesophageal reflux dise ase with esophagitis without hemorrhage 02/28/2021 Hiatal hernia 02/28/2021 Pure hypercholesterolemia 09/20/2020 Benign prostatic hyperplasia without lower urinary tract symptoms 09/20/2020 Vitamin D deficiency 09/20/2020 Resolved Problems Problem Noted Date Diagnosed Date Resolved Date Change in bowel function 04/17/202108/2021 Overview (04/17/2021): Added automatically from request for surgery [id number] Need for prophylactic vaccin ation against Streptococcus pneumoniae (pneumococcus) 09/20/2020 09/26/2020 Need for hepatitis C screening test 09/20/2020 09/26/2020 Immunizations Immunization Administration Dates Next Due Fluzone High Dose - >Age 65 (Prefilled Syringe) 09/04/2020 H1N1 2009 Influenza Vaccine 09/27/2009 Hepatitis B (Generic: Adult) 03/21/1989,10/18/19 88,09/20/1988 Influenza Adult (Generic) 09/05/2022,,08/19/2019,2017,09/26/2017,08/23/2016,08/23/2015,1 [facility] COVID-19 (12+) MRNA, LNP-S, PF, 100 MCG/ 0.5 ML DOSE 01/17/2021,12/20/2020 [facility]NA COVID-19 (GRAIN ELEVATOR OPERATOR ELIZABETH TUSHAR), MRNA, LNP-S, PF, 50 MCG/ 0.25 ML DOSE 03/26/2022 Pneumococcal (Pneumovax 23) 09/20/2020 Pneumococcal (Prevnar 13) 08/19/2019 Shingrix 10/24/2021,07/14/2021 Td 06/09/1993 Tdap (Adacel) 10/10/2020 Zoster (Zostavax) 78880 Unt/0.65Ml 07/12/2016 Family History Medical History Relation Comments Miscarriages / Stillbirths Daughter Hypertension Father Dementia Mother Stroke Mother Breast Cancer Sister 1 Defects Sister 2 Cerebral Palsey Cancer Sister 2 Inflammatory Krystle ast Cancer Relation Status Comments Daughter Father Mother Sister 1 Sister 2 Social History Tobacco Use Types Packs/Day Years Used Date Smoking Tobacco: Never Smokeless Tobacco: Never Tobacco Cessation:Counseling Given: Yes Comments:The provider can provide you with more information about quitting. Alcohol [...] Sexual Orientation Straight 11/03/2021 8: 05 AM CLINIC RECEPTIONIST Last Filed Vital Signs Vital Sign Reading Time Taken Comments Blood Pressure 112/73 10/31/2021 8:13 AM CLINIC RECEPTIONIST Pulse 65 10/31/2021 8:13 AM CLINIC RECEPTIONIST Temperature 36.9 C (98.4 F) 10/31/2021 8:13 AM CLINIC RECEPTIONIST Respiratory Rate 18 10/31/2021 8:13 AM CLINIC RECEPTIONIST Oxygen Saturation 99% 10/31/2021 8:13 AM CLINIC RECEPTIONIST Inhaled Oxygen Concentration - - Weight 76.2 kg (168 lb) 10/31/2021 8:13 AM CLINIC RECEPTIONIST Height 176.5 cm (5' 9.5 ) 10/31/2021 8:13 AM CLINIC RECEPTIONIST Body Mass Index 24.45 10/31/2021 8:13 AM CLINIC RECEPTIONIST Plan of Treatment Health Maintenance Due Date Last Done Comments RSV Immunization or 60+ Years (1 - Risk 60-74 years 1-dose series) 2013 Annual Medicare Wellness Visit 10/25/2022 10/24/2021 COVID-19 Vaccine ( season) 2024 07/28/2022, 03/26/2022, 09/04/2021, Additional history exists DTaP, Tdap and Td Vaccines (2 - Td or Tdap) 10/10/2030 10/10/2020, 06/09/1993 Colorectal Cancer Screening Colonoscopy (10 Years) 04/28/2031 04/28/2021, 09/24/2014, 09/24/2014, Additional history exists Pneumococcal Vaccine: 50+ Years Completed 09/20/2020, 08/19/2019 Hepatitis C Completed 10/10/2020 Zoster Vaccines Completed 10/24/2021, 01/2021, 07/12/2016 Meningococcal B Vaccine Aged Out No l onger eligible based on patient's age to complete this topic Meningococcal Vaccine Aged Out No alley lee eligible based on patient's age to complete this topic RSV Immunizations Under 20 Months Aged Out No longer eligible based on patient's age to complete this topic Procedures Procedure Name Priority Date/Time Associated Diagnosis Comments HEPATITIS C ANTIBODY W/RFX TO HCV RNA Routine 10/10/2020 9:19 AM CLINIC RECEPTIONIST COLONOSCOPY GENERIC (SCAN ORDER) 09/24/2014 from Last 3 Months or Most Recently Relevant to Health Maintenance Results * HEPATITIS C ANTIBODY W/RFX TO HCV RNA (10/10/2020 9:19 AM CLINIC RECEPTIONIST) HEPATITIS C AB NON-REACTI VE NON-REACT DELL [facility] SIGNAL TO CUTOFF 0.01 <[address] [facility] Comment: HCV antibody was non-reactive. There is no laboratory evidence of HCV infection. In most cases, no further action is required. However, if recent HCV exposure is suspected, a test for HCV RNA (test code 24887) is suggested. For additional information please refer to http://education.Flooved.CIRQY/faq/RQA36u4 (This link is being provided for informational/ educational purposes only.) 10/10/2020 9:19 AM CLINIC RECEPTIONIST 10/10/2020 9:23 AM CLINIC RECEPTIONIST Narrative [facility] - 10/14/2020 8:00 PM CLINIC RECEPTIONIST FASTING:YES FASTING: YES Edwin Bull MD LABORATORY Final Result [facility] [address] [address] [facility] [place] [address] * COLONOSCOPY GENERIC (09/24/2014) 09/24/2014 Narrative 09/24/2014 Ordered by an unspecified provider. us Documents Scanned SCANNING Final Result from Last 3 Months or Most Recently Relevant to Health Maintenance Insurance [employer] Care Teams Cooler Worker Relationship Specialty Start Date End Date Eliecer Sanchez MD [address] [place] [address] PCP - General FAMILY PRACTICE 01/15/23 Oswaldo Wilkinson MD 3 [place] [address] Consulting Physician UROLOGY 10/24/21 Brian Domínguez OD [address] [place] [address] Antenna Specialist 10/24/21 Lidia Stone MD [address] [place] [address] DERMATOLOGY 10/24/21 Gabe Nicole MD [address] [address] Consulting Physician GASTROENTEROLOGY 10/24/21
--- OUTSIDE RECORDS SUMMARY | 2025-03-23 15:23 | XMS_ITS | Encounter Summary ---
Author Organization [facility] Address [address] [place] [address] Phone Care Team Providers Care Wood Tile Installation Helper Name Role Phone Eliecer Sanchez MD Primary Care Provider [phone] Lidia Stone MD Unavailable [phone] Edwin Goodwin MD Unavailable [phone] Bon Alicea MD Unavailable [phone] Encounter Details Date Type Department Care Team (Latest Contact Info) Description 08/01/2023 Orders Only [facility] Scanning, Provider Social History Tobacco Use Types Packs/Day Years Used Date Smoking Tobacco: Never Smokeless Tobacco: Never AUDIT-C Answer Date Recorded Q1: How often do you have a drink containing alc ohol? Never 05/03/2023 Average Number of Drinks Not on file 023 Frequency of Binge Drinking Not on file 04/12 PHQ-2 Answer Date Recorded PHQ-2 Total Score (If total score is 3 or more points, staff should administer the PHQ-9) 0 07/12/2023 Sex and Gender Information Value Date Recorded Sex Assigned at Not on file Legal Sex Male 9:27 AM CDT Gender Identity Male 03/07/2023 3:15 PM CDT Sexual Orientation Straight 03/07/2023 3: 15 PM CDT documented as of this encounter Plan of Treatment Not on file documented as of this encounter Procedures Procedure Name Priority Date/Time Associated Diagnosis Comments SCAN - PATHOLOGY 08/01/2023 documented in this encounter Results * SCAN - PATHOLOGY (08/01/2023) us Provider Scanning Edited Result - Final documented in this encounter Visit Diagnoses Not on filedocumented in this encounter Care Teams Wood Tile Installation Helper Relationship Specialty Start Date End Date Eliecer Sanchez MD [address] [place] [address] PCP - General Family Medicine 05/25/22 Lidia Stone MD [address] [place] [address] Referring Physician Dermatology 08/07/23 Edwin Goodwin MD [address] [place] [address] Surgeon Surgical Oncology 08/09/23 Bon Alicea MD [address] [facility] [address] [place] [address] Medical Oncologist/Power Distributor Medical Oncology 08/09/23 documented as of this encounter
--- OUTSIDE RECORDS SUMMARY | 2025-03-23 15:23 | XMS_ITS | Encounter Summary ---
Author Organization [facility] Address [address] [place] [address] Phone Care Team Providers Care Bulk Plant Operator Name Role Phone Eliecer Sanchez MD Primary Care Provider [phone] Lidia Stone MD Unavailable [phone] Edwin Goodwin MD Unavailable [phone] Bon Alicea MD Unavailable [phone] Encounter Details Date Type Department Care Team (Latest Contact Info) Description 07/29/2024 Orders Only [facility] Scanning, Provider [...] Date/Time Associated Diagnosis Comments SCAN - PATHOLOGY 07/29/2024 documented in this encounter Results * SCAN - PATHOLOGY (07/29/2024) Provider Scanning Final Result documented in this encounter Visit Diagnoses Not on filedocumented in this encounter Care Teams Bulk Plant Operator Relationship Specialty Start Date End Date Eliecer Sanchez MD [address] [place] [address] PCP - General Family Medicine 05/25/22 Lidia Stone MD [address] [place] [address] Referring Physician Dermatology 08/07/23 Edwin Goodwin MD [address] [place] [address] Surgeon Surgical Oncology 08/09/23 Bon Alicea MD [address] [facility] [address] [place] [address] Medical Oncologist/Hadoop Analyst Medical Oncology 08/09/23 documented as of this encounter
--- OUTSIDE RECORDS SUMMARY | 2025-03-23 15:23 | XMS_ITS | Encounter Summary ---
Author Organization [facility] Address [address] [place] [address] Phone Care Team Providers Care Location And Measurement Technician Name Role Phone Eliecer Sanchez MD Primary Care Provider [phone] Lidia Stone MD Unavailable [phone] Edwin Goodwin MD Unavailable [phone] Bon Alicea MD Unavailable [phone] Encounter Details Date Type Department Care Team (Latest Contact Info) Description 03/25/2024 Orders Only [facility] Scanning, Provider [...] Date/Time Associated Diagnosis Comments SCAN - PATHOLOGY 03/25/2024 documented in this encounter Results * SCAN - PATHOLOGY (03/25/2024) Provider Scanning Final Result documented in this encounter Visit Diagnoses Not on filedocumented in this encounter Care Teams Location And Measurement Technician Relationship Specialty Start Date End Date Eliecer Sanchez MD [address] [place] [address] PCP - General Family Medicine 05/25/22 Lidia Stone MD [address] [place] [address] Referring Physician Dermatology 08/07/23 Edwin Goodwin MD [address] [place] [address] Surgeon Surgical Oncology 08/09/23 Bon Alicea MD [address] [facility] [address] [place] [address] Medical Oncologist/Telephone Lineworker Medical Oncology 08/09/23 documented as of this encounter
--- OUTSIDE RECORDS SUMMARY | 2025-03-23 15:23 | XMS_ITS | Referral Summary ---
Author Organization [facility] [address] [facility] Address [address] [place] [address] Care Team Providers Care Technology Officer Name Role Phone Eliecer Sanchez MD Primary Care Provider [phone] Lidia Stone MD Unavailable Edwin Goodwin MD Unavailable [phone] Bon Alicea MD Unavailable [phone] Encounters Date Type Department Care Team Description 03/03/2025 1:30 PM CDT Office Visit [facility] Cardiology [address] [facility] [address], [address] [place] [address] Rater, OCTAVIO Doshi Pure hypercholesterolemia (Primary Dx); Vasovagal syncope 01/29/2025 Orders Only [facility] Scanning, Provider 01/25/2025 Orders Only [facility] Oncology [address] [place] [address] Bon Alicea MD from Last 3 Months Allergies Active Allergy Reactions Criticality Noted Date [...] 1 tablet (75 mcg total) by mouth central office trouble shooter before breakfast 30 tablet 3 5 Active Sodium Fluoride 5000 Plus 1.1 % cream BRUSH TWICE DAILY 5 Active Active Problems Problem Noted Date Diagnosed Date Medicare annual wellness visit, subsequent 10/29 Assessment & Plan (10/29/2024 11:32 AM FURNITURE POLISHER): In regard to health maintenance, Colonoscopy- UTD [...] healthier, we can set up appointment with diamond cutter/sheet metal shop supervisor. Have an active lifestyle, strive for 30 [...] 10/29/2024 Assessment & Plan (10/29/2024 11:32 AM FURNITURE POLISHER): Weight appropriate for patient. Elevated liver enzymes 10/30/2023 Assessment & Plan (10/30/2023 12:06 AM FURNITURE POLISHER): - Unclear etiology, possibly related to brief hypotensive episode in the ED - Check Hepatitis panel and HIV with AM labs Syncope 10/29/2023 Assessment & Plan (10/30/2023 12:00 AM FURNITURE POLISHER): - Patient presenting following an episode of [...] weeks Assessment & Plan (10/30/2023 12:01 AM FURNITURE POLISHER): - Follows with Dr. Alicea s/p RUMindy excision. Today C1D1 of pembrolizumab initiated. - Outpatient follow-up Assessment & Plan (10/25/2023 9:18 AM FURNITURE POLISHER): Doing well; starts immunotherapy next week Melanoma [...] surgery Assessment & Plan (01/07/2023 10:13 AM FURNITURE POLISHER): Located in right hand, imaging was indeterminate; at this time patient would prefer to wait about getting biopsy Will continue to monitor for changes in mass Onychomycosis 01/07/2023 Assessment & Plan (05/03/2023 9:33 AM CDT): Continues to have improvement in toenails. Completed antifungal treatment Assessment & Plan (01/07/2023 10:14 AM FURNITURE POLISHER): Stable, improving; continues to have thickening on about half of the toenail Continue Lamisil 25 mg daily COVID-19 03/31/2022 Assessment & Plan (03/31/2022 11:18 AM CDT): Labs completed 12/02/21 at [facility]. Able to see results in his mychart. [...] and the virus that causes it. The [facility] will be reaching out to all [...] loosen secretions in the nose and lungs. Pahg-fuh-ybqzskl cold medicines will not shorten the length of time you r e sick, but they may be helpful for relieving the following symptoms: headache, cough, sore throat, and nasal and sinus congestion. If you take prescription medicines, ask your healthcare provider or pharmacist which lnhk-rte-glvwmxv medicines are safe to use. (Note: DO [...] yourself. Get rest and stay hydrated. Take stfo-zsc-zsspund medicines to help you feel better. Stay [...] and need to call 911, notify the washroom operator that you have or think you [...] quarters with someone who is sick visit https://www.cdc.gov/coronavirus/2019-ncov/wywvp-dwao-ckghin/nuxodr-re-fhnym-quar ters. html For more information on COVID-19 [...] (05/28/2022): Added automatically from request for surgery [id number] Gastroesophageal reflux dise ase with esophagitis without hemorrhage 02/28/2021 Assessment & Plan (10/29/2024 11:30 AM FURNITURE POLISHER): Well controlled and stable. No longer on Nexium and instead is using OTC digestive enzyme with great relief. Will continue to monitor. Assessment & Plan (04/29/2024 4:35 PM CDT): Stable, well controlled; continues to have some symptoms, unable to lower dose Continue Nexium 20 mg daily Assessment & Plan (10/25/2023 9:08 AM FURNITURE POLISHER): Stable, well controlled Continue Nexium 20 mg daily Assessment & Plan (05/03/2023 9:34 AM CDT): Well controlled; no major issues with medications Can eat some foods that previously causes issued Continue Nexium 20 mg daily Assessment & Plan (01/07/2023 10:12 AM FURNITURE POLISHER): Stable, well controlled; patient has careful diet Continue Nexium 20 mg daily Hiatal hernia 02/28/2021 Assessment & Plan (05/29/2022 1:59 PM CDT): Stable, well controlled; patient has been doing well, takes spbd-ffo-gfqbgmq Nexium daily; making dietary changes to reduce sitting and spicy food intake Benign prostatic hyperplasia without lower urinary tract symptoms 09/20/2020 Assessment & Plan (10/29/2024 11:24 AM FURNITURE POLISHER): Stable and well controlled. Follows with urology. Continues on Finasteride and Silodosin. Will continue to monitor. Assessment & Plan (04/29/2024 4:34 PM CDT): Stable, generally well controlled; follows with Urology for management; continues have some symptoms; may benefit from interventional treatments Continue finasteride 5 mg daily, silodosin 8 mg nightly Assessment & Plan (10/30/2023 12:00 AM FURNITURE POLISHER): - Cont home meds Assessment & Plan (10/25/2023 9:05 AM FURNITURE POLISHER): Follows with urology; currently getting good results Contineu Silodosin 8 mg daily and finasteride 5 mg daily Assessment & Plan (05/03/2023 9:49 AM CDT): Continues to follow with urology; urinating well Per patient has rising PSA; may be due for biopsy -on current medications, with good relief Continue silodosin 8 mg daily, finasteride 5 mg daily Assessment & Plan (01/07/2023 10:13 AM FURNITURE POLISHER): Stable, well controlled; follows with Urology for management Continue finasteride 5 mg daily, Savella dosing 8 mg daily Assessment & Plan (05/29/2022 1:59 PM CDT): Stable, well controlled; patient reports few symptoms with current medications Continue finasteride 5 mg daily, silodosin 8 mg daily Mixed hyperlipidemia 09/20/2020 Assessment & Plan (10/29/2024 11:31 AM FURNITURE POLISHER): Lipid panel stable and well controlled. Continues [...] therapy Assessment & Plan (01/07/2023 10:12 AM FURNITURE POLISHER): Stable, well controlled; patient using supplements for [...] 10/30/2023 Assessment & Plan (10/30/2023 12:01 AM FURNITURE POLISHER): - Immunizations Immunization Administration Dates Next Due H1N1 [...] 10/10/2020 ZOSTER LIVE 07/12/2016 ZOSTER Recombinant 10/24/2021,07/14/2021 Social History Tobacco Use Types Packs/Day Years [...] Orientation Straight 03/07/2023 3: 15 PM CDT Last Filed Vital Signs Vital Sign Reading [...] 03/03/2025 1:29 PM CDT Plan of Treatment Not on file Procedures Procedure Name Priority Date/Time Associated Diagnosis Comments SCAN - PATHOLOGY 01/29/2025 9:18 AM CDT HEPATITIS PANEL, ACUTE Routine 10/30/2023 1:45 AM FURNITURE POLISHER PSA SCREEN Routine 10/29/2022 11:15 AM FURNITURE POLISHER Screening PSA (prostate specific antigen) [facility] COLONOSCOPY Routine 04/28/2021 from Last 3 Months or Most Recently Relevant to Health Maintenance Results * SCAN - PATHOLOGY (01/29/2025 9:18 AM CDT) Provider Scanning Final Result * Hepatitis panel, acute Blood (10/30/2023 1:45 AM FURNITURE POLISHER) Hep A IgM Nonreactive Nonreactive [facility] Hep B core IgM Nonreactive Nonreactive [facility] Hep C Ab Nonreactive Nonreactive [facility] Comment:Antibodies to HCV no t detected. Does NOT exclude the possibility of recent exposure to HCV. Current interpretive data was last revised on 22 HepBsAg Nonreactive Nonreactive [facility] Blood 10/30/2023 1:45 AM FURNITURE POLISHER 10/30/2023 1:54 AM FURNITURE POLISHER Yoni Barnhart MD LAB MICROBIOLOGY - GENERA L ORDERABLES Final Result Performing Organization Address City/[facility] Co de Phone Number [facility] [address] [facility] [place] [address] * PSA screen (10/29/2022 11:15 AM FURNITURE POLISHER) PSA-Total 2.77 <=5.40 ng/mL [facility] Comment: Interpretive Data AGE SEX REFERENCE INTERVAL [...] revised 22. Blood 10/29/2022 11:1 5 AM FURNITURE POLISHER 10/29/2022 2:35 PM FURNITURE POLISHER Eliecer Sanchez MD LAB BLOOD ORDERABLES Flower l Result [facility] [address] [place] [address] * HM COLONOSCOPY (04/28/2021) us Historical Provider HEALTH MAINTENANCE Final Result from Last 3 Months or Most Recently Relevant to Health Maintenance Insurance MEDICARE PHYSICIANS [employer] MED[employer]ARE PHYSICIANS [employer] MEDICARE PHYSICIANS [facility] INS [facility] Member Subscriber Plan / Payer ( fective 2018-Present) Name:Brian Lopez Relation to Subscriber:Self Name:Brian Lopez Payer ID:[id number] Group ID:[id number] Type:COMMERCIAL Address: [facility] [address] [place], [place] Advance Directives For more information, please contact: [phone] Documents on File Type Date Recorded Patient Petroleum Products Sales Representative Expl anation ADVANCE DIRECTIVE 10/25/2023 9:14 AM Hoa ng Will ADVANCE DIRECTIVE 10/25/2023 9:14 AM Bernardo r of Flying Shear Operator-Medical * Full Code (Latest Code Status on File) Date Activated Date Inactivated Comments 10/29/2023 11:54 PM 10/31/2023 7:49 PM Care Teams Technology Officer Relationship Specialty Start Date End Date Eliecer Sanchez MD [address] [place] [address] PCP - General Family Medicine 05/25/22 Lidia Stone MD [address] [place] [address] Referring Physician Dermatology 08/07/23 Edwin Goodwin MD [address] [place] [address] Surgeon Surgical Oncology 08/09/23 Bon Alicea MD [address] [facility] [address] [place] [address] Medical Oncologist/Cryptologist Medical Oncology 08/09/23
--- OUTSIDE RECORDS SUMMARY | 2025-03-23 15:23 | XMS_ITS | Encounter Summary ---
Author Organization [facility] Address [address] [place] [address] Phone Care Team Providers Care Manager Retail Sales Name Role Phone Eliecer Sanchez MD Primary Care Provider [phone] Lidia Stone MD Unavailable [phone] Edwin Goodwin MD Unavailable [phone] Bon Alicea MD Unavailable [phone] Encounter Details Date Type Department Care Team (Latest Contact Info) Description 12/11/2023 Orders Only [facility] Scanning, Provider [...] Date/Time Associated Diagnosis Comments SCAN - LABS 12/10/2023 documented in this encounter Results * SCAN - LABS (12/10/2023) us Provider Scanning Edited Result - Final documented in this encounter Visit Diagnoses Not on filedocumented in this encounter Care Teams Manager Retail Sales Relationship Specialty Start Date End Date Eliecer Sanchez MD [address] [place] [address] PCP - General Family Medicine 05/25/22 Lidia Stone MD [address] [place] [address] Referring Physician Dermatology 08/07/23 Edwin Goodwin MD [address] [place] [address] Surgeon Surgical Oncology 08/09/23 Bon Alicea MD [address] [facility] [address] [place] [address] Medical Oncologist/Learning And Development Administrator Medical Oncology 08/09/23 documented as of this encounter
--- OUTSIDE RECORDS SUMMARY | 2025-03-23 15:23 | XMS_ITS | Encounter Summary ---
Author Organization [facility] Address [address] [place] [address] Phone Care Team Providers Care Booster Pump Oiler Name Role Phone Eliecer Sanchez MD Primary Care Provider [phone] Lidia Stone MD Unavailable [phone] Edwin Goodwin MD Unavailable [phone] Bon Alicea MD Unavailable [phone] Encounter Details Date Type Department Care Team (Latest Contact Info) Description 10/20/2024 Orders Only [facility] Scanning, Provider [...] points, staff should administer the PHQ-9) 0 10/23/2024 Personal Safety Answer Date Recorded Have you [...] PM CDT documented as of this encounter Functional Status * Audit-C Score Answer Date of Assessment Author 0 10/23/2024 9:35 AM EYELET ROW MARKER Chris Generic Provider * Q1: How often do you have a drink containing alcohol? Answer Date of Assessment Author Never 10/23/2024 9:35 AM EYELET ROW MARKER Chris Generic Provider * Q2: How many drinks containing alcohol do you have on a typical day when you are drinking? Answer Date of Assessment Author Patient does not drink 10/23/2024 9:35 AM EYELET ROW MARKER Kyra sawant, Generic Provider * Q3: How often do you have six or more drinks on one occasion? Answer Date of Assessment Author Never 10/23/2024 9:35 AM EYELET ROW MARKER Nato Perez Provider documented as of this encounter Plan of Treatment Not on file documented as of this encounter Procedures Procedure Name Priority Date/Time Associated Diagnosis Comments SCAN - PATHOLOGY 10/20/2024 documented in this encounter Results * SCAN - PATHOLOGY (10/20/2024) us Provider Scanning Final Result documented in this encounter Visit Diagnoses Not on filedocumented in this encounter Care Teams Booster Pump Oiler Relationship Specialty Start Date End Date Eliecer Sanchez MD [address] [place] [address] PCP - General Family Medicine 05/25/22 Lidia Stone MD [address] [place] [address] Referring Physician Dermatology 08/07/23 Edwin Goodwin MD [address] [place] [address] Surgeon Surgical Oncology 08/09/23 [place] [address] [place] [address] [address] [place] [address] Medical Oncologist/Test Borer Helper Medical Oncology 08/09/23 documented as of this encounter
== END ==
LOC: ANHLAB 15:20
PROVIDERS: Visit Provider Plastic Surgery
DX: C44.712 Basal cell carcinoma of skin of right lower limb, including hip (principal)
CPT/HCPCS: 88305